=== PATIENT | female | born 1985 | race Caucasian/White ===

== ENCOUNTER 2017-05-16 07:07 | Emergency (ER) | payer BC, OTHER ==
[2017-05-16 09:11] VITALS: BP 116/72
--- NOTE | 2017-05-16 09:17 | UC ---
Hand/Wrist HPI - HPI Summary HPI Summary: 31 yo female slipped and fell injuring right hand about 3 days ago now with dorsal hand edema right handed - History Of Current Complaint Chief Complaint: UCUpperExtremity Stated Complaint: RIGHT HAND INJURY Time Seen by Provider: 05/16/17 09:11 Hx Obtained From: Patient Hx Last Menstrual Period: n/a Onset/Duration: Sudden Onset, Lasting Days Severity Initially: Moderate Severity Currently: Mild Pain Intensity: 3 Pain Scale Used: 0-10 Numeric Character Of Pain: Dull, Aching Aggravating Factor(s): Movement, Lifting Alleviating: Rest Associated Signs And Symptoms: Positive: Swelling, Bruising Related History: Dominant Hand Right, Dominant Hand Left - Allergies/Home Medications Allergies/Adverse Reactions: Allergies Allergy/AdvReac Type Severity Reaction Status Date / Time environmental Allergy Wheezing Uncoded 05/16/17 07:20 Home Medications: Home Medications Ibuprofen TAB* [Advil TAB*] 400 mg PO Q4H PRN 05/16/17 [History Confirmed ] Levonorgestrel (Iud) [Mirena IUD] 1 unit IU DAILY 05/16/17 [History Confirmed ] PMH/Surg Hx/FS Hx/Imm Hx Previously Healthy: Yes Respiratory History: Asthma - Surgical History Surgical History: Yes Surgery Procedure, Year, and Place: Labiaplasty about 2006 - Family History Known Family History: Negative: Cardiac Disease, Hypertension, Diabetes - Social History Alcohol Use: Weekly Substance Use Type: Excessive Caffeine Smoking Status (MU): Never Smoked Tobacco Review of Systems Constitutional: Negative Skin: Bruising Eyes: Negative ENT: Negative Respiratory: Negative Cardiovascular: Negative Gastrointestinal: Negative Genitourinary: Negative Motor: Negative Neurovascular: Negative Musculoskeletal: Arthralgia Neurological: Negative Psychological: Negative All Other Systems Reviewed And Are Negative: Yes Physical Exam Triage Information Reviewed: Yes Appearance: Well-Appearing, No Pain Distress, Well-Nourished Vital Signs: Initial Vital Signs Temp 97.8 F 05/16/17 07:12 Pulse 87 05/16/17 07:12 Resp 18 05/16/17 07:12 BP 131/66 05/16/17 07:12 Vital Signs Reviewed: Yes Eyes: Positive: Conjunctiva Clear ENT: Positive: Hearing grossly normal. Negative: Nasal congestion, Nasal drainage, Trismus Neck: Positive: Supple, Nontender Respiratory: Positive: Lungs clear, Normal breath sounds, No respiratory distress Cardiovascular: Positive: RRR, No Murmur Abdomen Description: Positive: Nontender, No Organomegaly Musculoskeletal: Positive: ROM Intact, No Edema Neurological: Positive: Alert Psychological Exam: Normal Skin Exam: Normal Procedures - Splinting Location: right hand (fx 5th MC) Hand-Made Type: orthoglass Splint: ulnar - ulnar gutter splint Pre-Proc Neuro Vasc Exam: normal Post-Proc Neuro Vasc Exam: normal Hand/Wrist Course/Dx - Differential Dx/Diagnosis Provider Diagnoses: closed/nondisplaced oblique fracture of right 5th metatarsal Discharge - Discharge Plan Condition: Stable Disposition: HOME Prescriptions: Ibuprofen TAB* [Motrin TAB*] 600 mg PO Q6H PRN #40 tab PRN Reason: Pain Patient Education Materials: Hand Fracture (ED) Forms: *Work Release Referrals: Paul Pino MD [Medical Doctor] - As Soon As Possible Additional Instructions: rest elevate splint motrin Images Hands: 1 - swollen/ecchymotic. tender 4th MT
--- NOTE | 2017-05-16 09:33 | RAD ---
HISTORY: Right hand injury COMPARISONS: None VIEWS: 4, Frontal, lateral, and oblique views of the right hand FINDINGS: BONE DENSITY: Normal. BONES: There is an oblique nondisplaced fracture of the fifth metacarpal JOINTS: There is no arthropathy. ALIGNMENT: There is no dislocation. SOFT TISSUES: Unremarkable. OTHER FINDINGS: None. IMPRESSION: NONDISPLACED FRACTURE OF THE FIFTH METACARPAL
[2017-05-16] MEDS ORDERED: Ibuprofen TAB* 600 MG PO ONE (09:35)
== END 2017-05-16 09:56 | disposition home or self-care (01) ==
LOC: UCCORT 07:07
DX: S92.351A Displaced fracture of fifth metatarsal bone, right foot, initial encounter for closed fracture (principal); W01.0XXA Fall on same level from slipping, tripping and stumbling without subsequent striking against object, initial encounter; Y92.9 Unspecified place or not applicable
CPT/HCPCS: 26755; 99202; A9270-GY; G0463